=== PATIENT | female | born 1995 ===

== ENCOUNTER 2021-11-06 17:06 | Emergency (ER) | payer MEDICAID, OTHER ==
[~2021-11-06] VITALS: Ht 160 cm; Wt 73.4 kg
[2021-11-06 18:44] VITALS: BP 132/72
== END 2021-11-07 02:29 | disposition left against medical advice (07) ==
LOC: ER 17:06
DX: M54.2 Cervicalgia (principal); Z53.21 Procedure and treatment not carried out due to patient leaving prior to being seen by health care provider

== ENCOUNTER 2021-11-10 07:01 | Emergency (ER) | payer MEDICAID ==
[~2021-11-10] VITALS: Ht 160 cm; Wt 71.4 kg
[2021-11-10 07:37] VITALS: BP 117/68
[2021-11-10] MEDS ORDERED: CEPH-510 PO (08:08)
== END 2021-11-10 08:15 | disposition home or self-care (01) ==
LOC: ER 07:01
DX: H66.91 Otitis media, unspecified, right ear (principal); Z79.899 Other long term (current) drug therapy